=== PATIENT | female | born 1960 | race Caucasian/White ===

== ENCOUNTER 2022-09-20 01:46 | Emergency (ER) | payer BC ==
[2022-09-20 02:19] LABS: #Eosinphils 0.2 thou/uL (0.0-0.7); #Monocytes 0.6 thou/uL (0.11-0.59); #Neutrophils 6.2 thou/uL (1.40-6.50); %Basophils 0.4 % (0.0-1.0); %Eosinophils 1.7 % (0.0-10.0); %Lymphocytes 30.4 % (21.0-51.0); %Monocytes 5.9 % (0.0-10.0); %Neutrophils 61.6 % (42.0-75.0); Hemoglobin 14.7 g/dL (12.0-16.0); Mean Corpuscular HGB CONC 33.9 g/dL (32.0-36.0); Mean Corpuscular Hemoglobin 31.4 pg (27.0-31.0); Mean Corpuscular Volume 92.6 fl (78.0-98.0); Mean Platelet Volume 7.7 fL (7.4-10.4); Platelet Count 214 10x3/uL (130-400); RBC Distribution Width 11.5 % (11.5-14.5); Red Blood Cell (RBC) Count 4.68 mill/uL (4.20-5.40)
[2022-09-20] MEDS ORDERED: Magnesium 2 GM/50 ML BAG (IN WATER) ONE (02:21)
[2022-09-20] MEDS ORDERED: methylPREDNISolone Sod Succ/PF 125 MG/2 ML VIAL ONE (02:21)
[2022-09-20] MEDS ORDERED: Ondansetron PF 4 MG/2 ML Vial ONE (02:21)
[2022-09-20 02:55] LABS: ALT (SGPT) 10 U/L (8-55); AST (SGOT) 15 U/L (5-34); Albumin 3.8 g/dL (3.4-4.8); Alkaline Phosphatase 62 U/L (40-110); Anion Gap 15 mmol/L (10-20); BUN (Urea Nitrogen) 15 mg/dL (9.8-20.1); Bilirubin, Total 0.6 mg/dL (0.2-1.2); Calc. Creatinine Clearance 0 mL/min (70-130); Calcium 9.2 mg/dL (7.8-10.44); Carbon Dioxide 21 mmol/L (23-31); Chloride 105 mmol/L (98-107); Estimated GFR 79; Globulin 3.6 g/dL (2.4-3.5); Glucose 193 mg/dL (80-115); Potassium 3.3 mmol/L (3.5-5.1); Protein, Total 7.4 g/dL (5.8-8.1); Sodium 138 mmol/L (136-145)
[2022-09-20] MEDS ORDERED: Aspirin Chewable 81 MG TAB ONE (03:21)
[2022-09-20] MEDS ORDERED: Doxycycline 100 MG CAP PO SCH (04:00)
[2022-09-20] MEDS ORDERED: Ibuprofen 200 MG TAB ONE (06:14)
[2022-09-20 07:23] LABS: SARS-CoV-2 NAA Rapid Test Not Detected (NotDetected)
== END 2022-09-20 08:05 | disposition home or self-care (01) ==
LOC: ERS 01:46
DX: J18.9 Pneumonia, unspecified organism (principal); J45.901 Unspecified asthma with (acute) exacerbation; Z20.822 Contact with and (suspected) exposure to COVID-19
CPT/HCPCS: 71045; 80053; 83880; 84484; 85025; 87040; 93005; 94640; 96365; 96375; J2405; J2930; J3475; J7620

== ENCOUNTER 2024-07-21 13:29 | Inpatient (IN) | payer BC, OTHER ==
[2024-07-21 13:53] LABS: #Basophils 0.06 10x3/uL (0.0-0.2); %Basophils 0.8 % (0.0-1.0); %Eosinophils 0.9 % (0.0-10.0); %Monocytes 5.4 % (0.0-10.0); %Neutrophils 52.1 % (42.0-75.0); Hematocrit 44.8 % (36.0-47.0); Hemoglobin 15.5 g/dL (12.0-16.0); Mean Corpuscular HGB CONC 34.6 g/dL (32.0-36.0); Mean Corpuscular Hemoglobin 30.6 pg (27.0-31.0); Mean Corpuscular Volume 88.4 fL (78.0-98.0); Mean Platelet Volume 10.2 fL (7.4-10.4); Platelet Count 225 10x3/uL (130-400); RBC Distribution Width 12.6 % (11.5-14.5); Red Blood Cell (RBC) Count 5.07 mill/uL (4.20-5.40)
[2024-07-21] MEDS ORDERED: Meclizine HCl 25 MG TAB ONE (14:01)
[2024-07-21] MEDS ORDERED: Magnesium 2 GM/50 ML BAG (IN WATER) ONE (14:02)
[2024-07-21] MEDS ORDERED: methylPREDNISolone Sod Succ/PF 125 MG/2 ML VIAL ONE (14:02)
[2024-07-21 14:16] LABS: ALT (SGPT) 9 U/L (8-55); AST (SGOT) 17 U/L (5-34); Albumin 4.4 g/dL (3.4-4.8); Alkaline Phosphatase 78 U/L (40-110); Anion Gap 16 mmol/L (10-20); BUN (Urea Nitrogen) 22 mg/dL (9.8-20.1); Bilirubin, Total 0.7 mg/dL (0.2-1.2); Calc. Creatinine Clearance 0 mL/min (70-130); Calcium 9.9 mg/dL (7.8-10.44); Carbon Dioxide 21 mmol/L (23-31); Chloride 105 mmol/L (98-107); Estimated GFR 63; Globulin 3.9 g/dL (2.4-3.5); Glucose 172 mg/dL (80-115); Potassium 4.8 mmol/L (3.5-5.1); Protein, Total 8.3 g/dL (5.8-8.1); Sodium 137 mmol/L (136-145)
[2024-07-21 14:22] LABS: Troponin I Less than 0.010 ng/mL (< 0.028)
[2024-07-21 14:24] LABS: Actual Bicarbonate (HCO3v) 25.2 mEq/L (22-28); Base Excess -0.8 mEq/L (-2.0 to +3.0); Calcium, Ionized (venous) 1.19 mmol/L (1.16-1.32); Chloride (VBG) 101 mmol/L (98-106); Hematocrit-VBG 44 % (36.0-47.0); Hemoglobin (Hb) 14.8 g/dL (11.7-16.0); Potassium (VBG) 4.49 mmol/L (3.70-5.30); Sodium 138 mmol/L (133-146); pH (venous) 7.352 (7.32-7.43)
[2024-07-21 14:50] LABS: Bacteria/HPF 3+ HPF (None Seen); Bilirubin Negative (Negative); Blood, Urine Negative (Negative); CAUTI Indications for Culture Dysuria,urgency,freq; Clarity Clear (Clear); Glucose, Urine (Dipstick) Normal (Negative); Ketone, Urine Negative (Negative); Leukocyte 25 Leu/uL (Negative); Nitrite 1+ (Negative); Protein, Urine (Dipstick) Negative (Neg-Trace); RBC/HPF 0-3 HPF (0-3); Specific Gravity, Urine 1.006 (1.002-1.036); Squamous Epithelial 0-3 HPF (0-3); Urobilinogen Normal mg/dL (Less than 2); WBC/HPF 0-3 HPF (0-3); Yeast-Budding 2+ HPF (None Seen); pH, Urine 6.5 (5.0-9.0)
[2024-07-21 14:51] LABS: Urine Culture Reflex No No
[2024-07-21] MEDS ORDERED: Aspirin Chewable 81 MG TAB ONE (15:33)
[2024-07-21] MEDS ORDERED: Ondansetron PF 4 MG/2 ML Vial ONE (15:33)
[2024-07-21] MEDS ORDERED: Sodium Chloride 0.9% 100 ML ONE (15:33)
[2024-07-21] MEDS ORDERED: cefTRIAXone (ROCEPHIN) 2 GM VIAL ONE (15:33)
[2024-07-21] MEDS ORDERED: Dextrose 5% in Water 1,000 ML IV PRN (15:43)
[2024-07-21] MEDS ORDERED: Dextrose 50% Abboject 50 ML SYRINGE SLOW IVP PRN (15:43)
[2024-07-21] MEDS ORDERED: Glucagon 1 MG/ML KIT IM PRN (15:43)
[2024-07-21] MEDS ORDERED: Ipratropium/Albuterol 3 ML NEB NEB PRN (15:46)
[2024-07-21 16:28] LABS: Hemoglobin A1c 10.7 % (4.0-6.0)
[2024-07-21 18:30] LABS: Amphetamine Not Detected (NotDetected); Barbiturates Screen Not Detected (NotDetected); Benzodiazepine Screen Not Detected (NotDetected); Cocaine Metabolite Screen Not Detected (NotDetected); Methadone Not Detected (NotDetected); Methamphetamine Not Detected (NotDetected); Opiate Screen Not Detected (NotDetected); Oxycodone Screen Not Detected (NotDetected); Phencyclidine (PCP) Not Detected (NotDetected); THC/Cannabinoid Screen Not Detected (NotDetected); Tricyclic Screen Not Detected (NotDetected)
[2024-07-21 20:20] VITALS: BMI 27.3
[2024-07-21] MEDS: Sodium Chloride 0.9% 1,000 ML IV SCH (21:23)
[2024-07-21] MEDS: Famotidine/PF 20 mg/2ml Vial SLOW IVP SCH (21:25)
[2024-07-21] MEDS: Meclizine HCl 25 MG TAB PO SCH (21:26)
[2024-07-22] MEDS: Ondansetron ODT 4 MG TAB PO PRN (06:26)
[2024-07-22] MEDS: Insulin Regular, Human 100 UNIT/ML 10 ML VIAL SC PRN (06:33)
[2024-07-22 07:51] LABS: Anion Gap 16 mmol/L (10-20); BUN (Urea Nitrogen) 23 mg/dL (9.8-20.1); Calc. Creatinine Clearance 73 mL/min (70-130); Calcium 9.3 mg/dL (7.8-10.44); Carbon Dioxide 21 mmol/L (23-31); Cardiac Risk 4.7 (Less than 4.5); Chloride 102 mmol/L (98-107); Cholesterol 259 mg/dl (< 200 Desired); Estimated GFR 62; Glucose 290 mg/dL (80-115); HDL Cholesterol 55 mg/dL (>60 Neg Risk); LDL Cholesterol, Calculated 185 mg/dL; Magnesium 2.3 mg/dL (1.6-2.6); Potassium 4.9 mmol/L (3.5-5.1); Sodium 134 mmol/L (136-145); Triglycerides 94 mg/dL (Less than 150)
[2024-07-22] MEDS: Enoxaparin 40 MG (0.4 mL) SYRINGE SC SCH (09:16)
[2024-07-22] MEDS: Aspirin 81 mg Enteric Coated Tablet PO SCH (09:16)
[2024-07-22] MEDS: predniSONE 20 MG TAB PO SCH (09:16)
[2024-07-22] MEDS: Acetaminophen 325 MG TAB PO PRN (14:28)
[2024-07-22] MEDS: cefTRIAXone\\ROCEPHIN 2 GM in Sodium Chloride 0.9% 100 ML IVPB SCH (16:53)
[2024-07-23] MEDS: Lorazepam 2 MG/ML VIAL SLOW IVP PRN (11:26)
[2024-07-23 13:55] VITALS: TEMP 97.4
[2024-07-23 14:33] VITALS: BP 116/75
== END 2024-07-23 16:53 | disposition home or self-care (01) | DRG 149 ==
LOC: ERS 13:29 → ERHOLD 15:39 → 2SE 19:33 → OBSVTOIN 07-23 08:47
PROVIDERS: ADMIT Internal Medicine; ATTEND Internal Medicine
DX: H81.10 Benign paroxysmal vertigo, unspecified ear (principal); J45.901 Unspecified asthma with (acute) exacerbation; N39.0 Urinary tract infection, site not specified; F41.9 Anxiety disorder, unspecified; E11.9 Type 2 diabetes mellitus without complications; E78.5 Hyperlipidemia, unspecified; J45.909 Unspecified asthma, uncomplicated; Z79.51 Long term (current) use of inhaled steroids; Z88.0 Allergy status to penicillin; Z88.5 Allergy status to narcotic agent; Z88.6 Allergy status to analgesic agent; Z90.49 Acquired absence of other specified parts of digestive tract
CPT/HCPCS: 36415; 36416; 70450; 70551; 71045; 80048; 80053; 80061; 80306; 81001; 82010; 82805; 83036; 83735; 84443; 84484; 85025; 93005; 96365; 96372; 96375; 96376; G0378; J0696; J1650; J1815; J2060; J2405; J2919; J3475; J3490; J7512; Q0162

== ENCOUNTER 2024-11-05 15:41 | Emergency (ER) | payer OTHER ==
[2024-11-05 16:15] LABS: #Basophils 0.07 10x3/uL (0.0-0.2); %Basophils 0.9 % (0.0-1.0); %Eosinophils 0.9 % (0.0-10.0); %Lymphocytes 28.5 % (21.0-51.0); %Monocytes 5.9 % (0.0-10.0); %Neutrophils 63.3 % (42.0-75.0); Hematocrit 37.4 % (36.0-47.0); Mean Corpuscular HGB CONC 34.8 g/dL (32.0-36.0); Mean Corpuscular Hemoglobin 31.6 pg (27.0-31.0); Mean Platelet Volume 10.1 fL (7.4-10.4); Platelet Count 231 10x3/uL (130-400); RBC Distribution Width 12.7 % (11.5-14.5); Red Blood Cell (RBC) Count 4.11 mill/uL (4.20-5.40)
[2024-11-05] MEDS ORDERED: Dicyclomine 20 MG/2 ML VIAL ONE (16:26)
[2024-11-05 16:30] LABS: ALT (SGPT) 12 U/L (8-55); AST (SGOT) 11 U/L (5-34); Albumin 3.7 g/dL (3.4-4.8); Alkaline Phosphatase 65 U/L (40-110); Anion Gap 12 mmol/L (10-20); BUN (Urea Nitrogen) 22 mg/dL (9.8-20.1); Bilirubin, Total 0.4 mg/dL (0.2-1.2); Calc. Creatinine Clearance 0 mL/min (70-130); Calcium 9.1 mg/dL (7.8-10.44); Carbon Dioxide 27 mmol/L (23-31); Chloride 106 mmol/L (98-107); Estimated GFR 62; Globulin 3.3 g/dL (2.4-3.5); Glucose 168 mg/dL (80-115); Lipase 45 U/L (8-78); Magnesium 1.9 mg/dL (1.6-2.6); Potassium 4.2 mmol/L (3.5-5.1); Sodium 141 mmol/L (136-145)
[2024-11-05 17:01] LABS: Troponin I Less than 0.010 ng/mL (< 0.028)
== END 2024-11-05 18:55 | disposition home or self-care (01) ==
LOC: ERS 15:41
DX: K52.9 Noninfective gastroenteritis and colitis, unspecified (principal); I10 Essential (primary) hypertension; E78.5 Hyperlipidemia, unspecified; E11.9 Type 2 diabetes mellitus without complications; J45.909 Unspecified asthma, uncomplicated; Z79.899 Other long term (current) drug therapy
CPT/HCPCS: 36415; 71045; 74177; 80053; 83605; 83690; 83735; 83880; 84484; 85025; 93005; 94760; 96360; 96361; 96372

== ENCOUNTER 2024-12-03 15:30 | Inpatient (IN) | payer OTHER, SELFPAY ==
[2024-12-03 18:38] LABS: #Basophils 0.05 10x3/uL (0.0-0.2); %Basophils 0.5 % (0.0-1.0); %Eosinophils 0.5 % (0.0-10.0); %Lymphocytes 25.8 % (21.0-51.0); %Monocytes 4.9 % (0.0-10.0); %Neutrophils 67.9 % (42.0-75.0); Hematocrit 42.2 % (36.0-47.0); Hemoglobin 13.9 g/dL (12.0-16.0); Mean Corpuscular HGB CONC 32.9 g/dL (32.0-36.0); Mean Corpuscular Hemoglobin 30.9 pg (27.0-31.0); Mean Corpuscular Volume 93.8 fL (78.0-98.0); Platelet Count 202 10x3/uL (130-400); RBC Distribution Width 12.3 % (11.5-14.5)
[2024-12-03 18:53] LABS: Bacteria/HPF 4+ HPF (None Seen); Bilirubin Negative (Negative); Blood, Urine 2+ (Negative); CAUTI Indications for Culture Fever or rigors; Clarity Extra Turbid (Clear); Glucose, Urine (Dipstick) Normal (Negative); Ketone, Urine Trace mg/dL (Negative); Leukocyte 250 Leu/uL (Negative); Nitrite Negative (Negative); Protein, Urine (Dipstick) Negative (Neg-Trace); Squamous Epithelial 0-3 HPF (0-3); Urobilinogen Normal mg/dL (Less than 2); WBC/HPF 21-50 HPF (0-3)
[2024-12-03 18:54] LABS: Urine Culture Reflex Yes Yes
[2024-12-03 19:03] LABS: ALT (SGPT) 10 U/L (Less than 34); AST (SGOT) 12 U/L (11-34); Albumin 3.7 g/dL (3.1-4.5); Alkaline Phosphatase 78 U/L (40-110); Anion Gap 14 mmol/L (10-20); BUN (Urea Nitrogen) 23 mg/dL (9.8-20.1); Bilirubin, Total 0.5 mg/dL (0.3-1.2); Calc. Creatinine Clearance 0 mL/min (70-130); Carbon Dioxide 24 mmol/L (23-31); Chloride 108 mmol/L (98-107); Estimated GFR 62; Globulin 3.3 g/dL (2.4-3.5); Glucose 141 mg/dL (80-115); Potassium 4.5 mmol/L (3.5-5.1); Sodium 141 mmol/L (136-145)
[2024-12-03 19:07] LABS: Troponin I 0.016 ng/mL (< 0.028)
[2024-12-03] MEDS ORDERED: Sodium Chloride 0.9% 100 ML ONE (19:36)
[2024-12-03] MEDS ORDERED: cefTRIAXone (ROCEPHIN) 2 GM VIAL ONE (19:36)
[2024-12-03] MEDS ORDERED: Metoclopramide HCl 10 MG (2 mL) VIAL ONE (19:36)
[2024-12-03] MEDS ORDERED: diphenhydrAMINE 50 MG/ML VIAL ONE (19:36)
[2024-12-03] MEDS ORDERED: Glucagon 1 MG/ML KIT IM PRN (22:20)
[2024-12-03] MEDS ORDERED: Dextrose 5% in Water 1,000 ML IV PRN (22:20)
[2024-12-03] MEDS ORDERED: Insulin Lispro 100 UNIT/ML 10 ML VIAL SC PRN (22:20)
[2024-12-03] MEDS ORDERED: Dextrose 50% Abboject 50 ML SYRINGE SLOW IVP PRN (22:20)
[2024-12-03] MEDS ORDERED: Acetaminophen 325 MG TAB PO PRN (22:21)
[2024-12-03] MEDS ORDERED: Senokot S 8.6-50 MG TAB PO PRN (22:21)
[2024-12-03] MEDS ORDERED: Acetaminophen 650 MG Suppository PR PRN (22:21)
[2024-12-03] MEDS ORDERED: Ondansetron PF 4 MG/2 ML Vial IVP PRN (22:21)
[2024-12-03] MEDS ORDERED: Ondansetron ODT 4 MG TAB PO PRN (22:21)
[2024-12-03] MEDS ORDERED: Albuterol 200 PUFF (6.7GM INHALER) INH PRN (22:23)
[2024-12-03] MEDS ORDERED: hydrALAZINE 20 MG/ML VIAL SLOW IVP PRN (22:23)
[2024-12-03 23:38] VITALS: BMI 28.8
[2024-12-04] MEDS: Pantoprazole 40 MG VIAL IVP SCH
[2024-12-04] MEDS: Lactated Ringer's 500 ML IV SCH (00:01)
[2024-12-04 05:23] LABS: #Basophils 0.04 10x3/uL (0.0-0.2); %Basophils 0.5 % (0.0-1.0); %Eosinophils 1.5 % (0.0-10.0); %Lymphocytes 36.4 % (21.0-51.0); %Monocytes 7.4 % (0.0-10.0); %Neutrophils 53.8 % (42.0-75.0); Hematocrit 36.2 % (36.0-47.0); Hemoglobin 11.8 g/dL (12.0-16.0); Mean Corpuscular HGB CONC 32.6 g/dL (32.0-36.0); Mean Corpuscular Hemoglobin 30.8 pg (27.0-31.0); Mean Corpuscular Volume 94.5 fL (78.0-98.0); Mean Platelet Volume 10.5 fL (7.4-10.4); Platelet Count 175 10x3/uL (130-400); RBC Distribution Width 12.3 % (11.5-14.5); Red Blood Cell (RBC) Count 3.83 mill/uL (4.20-5.40)
[2024-12-04 05:33] LABS: Anion Gap 10 mmol/L (10-20); BUN (Urea Nitrogen) 17 mg/dL (9.8-20.1); Calc. Creatinine Clearance 94 mL/min (70-130); Calcium 8.2 mg/dL (7.8-10.44); Carbon Dioxide 22 mmol/L (23-31); Chloride 110 mmol/L (98-107); Estimated GFR 80; Glucose 216 mg/dL (80-115); Potassium 3.9 mmol/L (3.5-5.1); Sodium 138 mmol/L (136-145)
[2024-12-04] MEDS: Pantoprazole 40 MG DR.TAB PO SCH (10:36)
[2024-12-04] MEDS: Aspirin 81 mg Enteric Coated Tablet PO SCH (10:36)
[2024-12-04] MEDS: Enoxaparin 40 MG (0.4 mL) SYRINGE SC SCH (10:36)
[2024-12-04] MEDS: Insulin Lispro 100 UNIT/ML 10 ML VIAL SC PRN (11:39)
[2024-12-04] MEDS: cefTRIAXone\\ROCEPHIN 1 GM in Sodium Chloride 0.9% 100 ML IVPB SCH (17:44)
[2024-12-04] MEDS: Insulin Lispro 100 UNIT/ML 10 ML VIAL SQ SCH (17:45)
[2024-12-04] MEDS: Atorvastatin Calcium 40 MG TAB PO SCH (20:18)
[2024-12-05] MEDS: Aspirin 81 mg Enteric Coated Tablet PO SCH (08:12)
[2024-12-05 08:54] LABS: Cardiac Risk 3.7 (Less than 4.5)
[2024-12-05 12:58] VITALS: BP 105/68; TEMP 98.1
== END 2024-12-05 16:06 | disposition home or self-care (01) | DRG 69 ==
LOC: ERS 15:30 → ERHOLD 21:42 → PCU 23:03 → OBSVTOIN 12-04 16:06
PROVIDERS: ADMIT Internal Medicine; ATTEND Internal Medicine
DX: G45.9 Transient cerebral ischemic attack, unspecified (principal); N39.0 Urinary tract infection, site not specified; E86.0 Dehydration; E78.5 Hyperlipidemia, unspecified; E11.9 Type 2 diabetes mellitus without complications; J45.909 Unspecified asthma, uncomplicated; I10 Essential (primary) hypertension; Z88.0 Allergy status to penicillin; Z88.5 Allergy status to narcotic agent; Z79.899 Other long term (current) drug therapy; Z79.4 Long term (current) use of insulin; Z79.82 Long term (current) use of aspirin
CPT/HCPCS: 36415; 36416; 70450; 70496; 70498; 70551; 71045; 80048; 80053; 80061; 81001; 84484; 85025; 87077; 87086; 87186; 87428; 93005; 93306; 96374; 96375; J0696; J1200; J1650; J1815; J2470; J2765

== ENCOUNTER 2025-06-10 12:31 | Inpatient (IN) | payer OTHER ==
[~2025-06-10 12:31] MED LIST: Iopamidol-370 76% 500 ML MDV (1 ML CHARGE) ONE
[2025-06-10 12:47] LABS: #Basophils 0.05 10x3/uL (0.0-0.2); #Eosinophils 0.09 10x3/uL (0.0-0.7); #Monocytes 0.69 10x3/uL (0.11-0.59); #Neutrophils 4.32 10x3/uL (1.40-6.50); %Basophils 0.7 % (0.0-1.0); %Eosinophils 1.2 % (0.0-10.0); %Lymphocytes 28.2 % (21.0-51.0); %Monocytes 9.5 % (0.0-10.0); %Neutrophils 59.7 % (42.0-75.0); Hematocrit 34.4 % (36.0-47.0); Hemoglobin 11.8 g/dL (12.0-16.0); Mean Corpuscular Hemoglobin 31.1 pg (27.0-31.0); Mean Corpuscular Volume 90.8 fL (78.0-98.0); Platelet Count 187 10x3/uL (130-400); Red Blood Cell (RBC) Count 3.79 mill/uL (4.20-5.40); White Blood Cell (WBC) Count 7.24 10x3/uL (4.8-10.8)
[2025-06-10 13:00] LABS: INR-International Normal Ratio 1.0; PTT 23.5 sec (22.9-36.1); Prothrombin Time 13.0 sec (12.0-14.7)
[2025-06-10 13:04] LABS: ALT (SGPT) 11 U/L (Less than 34); AST (SGOT) 17 U/L (11-34); Albumin 3.8 g/dL (3.1-4.5); Alkaline Phosphatase 78 U/L (40-110); Anion Gap 11 mmol/L (10-20); BUN (Urea Nitrogen) 20 mg/dL (9.8-20.1); Bilirubin, Total 0.3 mg/dL (0.3-1.2); Calc. Creatinine Clearance 0 mL/min (70-130); Calcium 8.4 mg/dL (7.8-10.44); Carbon Dioxide 24 mmol/L (23-31); Chloride 109 mmol/L (98-107); Globulin 2.9 g/dL (2.4-3.5); Glucose 90 mg/dL (80-115); Potassium 3.4 mmol/L (3.5-5.1); Sodium 141 mmol/L (136-145)
[2025-06-10 13:07] LABS: Troponin I Less than 0.010 ng/mL (< 0.028)
[2025-06-10 13:55] LABS: Acetaminophen Less than 10 mcg/mL (Less than 10); Salicylate Less than 8.0 mg/dL (Less than 8.0)
[2025-06-10] MEDS ORDERED: NS 0.9% w/ 20 MEQ KCL 1,000 ML ONE (14:03)
[2025-06-10 15:12] LABS: Cocaine Metabolite Screen Negative (Negative); THC/Cannabinoid Screen Negative (Negative); Tricyclic Screen Negative (Negative)
[2025-06-10] MEDS ORDERED: Guaifenesin DM 100-10/5 ML UDCUP PO PRN (15:34)
[2025-06-10] MEDS ORDERED: Acetaminophen 325 MG TAB PO PRN (15:34)
[2025-06-10] MEDS ORDERED: Senokot S 8.6-50 MG TAB PO PRN (15:34)
[2025-06-10] MEDS ORDERED: Melatonin 3 MG TAB PO PRN (15:34)
[2025-06-10] MEDS ORDERED: Electrolyte Replacement Protocol 1 EACH FS SCH (15:45)
[2025-06-10] MEDS ORDERED: Dextrose 50% Abboject 50 ML SYRINGE SLOW IVP PRN (16:10)
[2025-06-10] MEDS ORDERED: Glucagon 1 MG/ML KIT IM PRN (16:10)
[2025-06-10 17:44] VITALS: BMI 30.4
[2025-06-10] MEDS: Famotidine 20 MG TAB PO SCH (20:34)
[2025-06-10 23:15] LABS: Potassium 3.7 mmol/L (3.5-5.1)
[2025-06-11 04:15] LABS: Anion Gap 10 mmol/L (10-20); BUN (Urea Nitrogen) 22 mg/dL (9.8-20.1); Calc. Creatinine Clearance 85 mL/min (70-130); Calcium 7.9 mg/dL (7.8-10.44); Carbon Dioxide 24 mmol/L (23-31); Cardiac Risk 4.0 (Less than 4.5); Chloride 111 mmol/L (98-107); Cholesterol 155 mg/dl (< 200 Desired); Glucose 203 mg/dL (80-115); HDL Cholesterol 39 mg/dL (>60 Neg Risk); LDL Cholesterol, Calculated 96 mg/dL; Potassium 4.1 mmol/L (3.5-5.1); Sodium 141 mmol/L (136-145); Triglycerides 100 mg/dL (Less than 150)
[2025-06-11] MEDS ORDERED: Pantoprazole 40 MG DR.TAB PO PRN (07:54)
[2025-06-11] MEDS ORDERED: Albuterol 2.5 MG (3 mL) NEB NEB PRN (07:54)
[2025-06-11] MEDS ORDERED: Albuterol 200 PUFF INH INH PRN (08:04)
[2025-06-11] MEDS ORDERED: Aspirin 81 mg Enteric Coated Tablet PO SCH (09:00)
[2025-06-11] MEDS: Lisinopril 20 MG TAB PO SCH (09:52)
[2025-06-11] MEDS: Aspirin 81 mg Enteric Coated Tablet PO SCH (09:53)
[2025-06-11] MEDS: Enoxaparin 40 MG (0.4 mL) SYRINGE SC SCH (09:54)
[2025-06-11] MEDS: Insulin Glargine 30 UNITS/0.3 ML VIAL SC SCH ×2 (12:42→21:56)
[2025-06-11] MEDS ORDERED: Insulin Glargine 30 UNITS/0.3 ML VIAL SC SCH (17:00)
[2025-06-12 08:05] VITALS: TEMP 97.9
[2025-06-12] MEDS: Insulin Glargine 30 UNITS/0.3 ML VIAL SC SCH (09:16)
[2025-06-12 12:05] VITALS: BP 133/83
== END 2025-06-12 14:45 | disposition home or self-care (01) | DRG 639 ==
LOC: ERS 12:31 → 2SE 15:37 → OBSVTOIN 06-11 14:54
PROVIDERS: ADMIT Family Medicine; ATTEND Emergency Medicine
PROC: XX20X89 Monitoring of Brain Electrical Activity, Computer-aided Detection and Notification, New Technology Group 9 (ICD-10-PCS; principal; 2025-06-11)
DX: E11.649 Type 2 diabetes mellitus with hypoglycemia without coma (principal); I10 Essential (primary) hypertension; E78.5 Hyperlipidemia, unspecified; J45.909 Unspecified asthma, uncomplicated; Z79.899 Other long term (current) drug therapy; Z79.84 Long term (current) use of oral hypoglycemic drugs; Z90.49 Acquired absence of other specified parts of digestive tract
CPT/HCPCS: 36415; 36416; 70450; 70496; 70498; 70551; 71045; 80048; 80053; 80061; 80306; 80307; 84443; 84484; 85025; 85610; 85730; 93005; 94760; 95819; 96365; 96366; 96372; G0378; J1650; J1815; J3480; Q9967